=== PATIENT | male | born 1965 | race Caucasian/White ===

== ENCOUNTER 2019-02-14 12:07 | Emergency (ER) | payer OTHER ==
[~2019-02-14] VITALS: Ht 177.8 cm; Wt 102.1 kg
[~2019-02-14 12:07] MED LIST: ALBU90I INH; BACITO TP; HYDACE10B PO; PRED20 PO
[2019-02-14] MEDS ORDERED: Prozac40 MG PO (13:11)
[2019-02-14] MEDS ORDERED: Mobic15 MG PO (13:11)
[2019-02-14] MEDS ORDERED: Ventolin/Prove6.7 GM INH (13:11)
[2019-02-14] MEDS ORDERED: Flovent 220 Ora12 GM INH (13:11)
[2019-02-14] MEDS ORDERED: Bactrim Ds Tab1 EACH PO (13:28)
[2019-02-14] MEDS ORDERED: MUPIROCIN1 GM TOP (13:28)
[2019-02-14] MEDS ORDERED: CEPH500 PO (13:28)
== END 2019-02-14 13:51 | disposition home or self-care (01) ==
LOC: ER 12:07
DX: L02.811 Cutaneous abscess of head [any part, except face] (principal); L02.414 Cutaneous abscess of left upper limb; L02.413 Cutaneous abscess of right upper limb; F17.200 Nicotine dependence, unspecified, uncomplicated; Z79.899 Other long term (current) drug therapy
CPT/HCPCS: 99282

== ENCOUNTER 2020-08-17 10:37 | Emergency (ER) | payer OTHER ==
[~2020-08-17] VITALS: Ht 170.2 cm; Wt 104.3 kg
[~2020-08-17 10:37] MED LIST changes: +Bactrim Ds Tab1 EACH PO; +CEPH500 PO; +Flovent 220 Ora12 GM INH; +MUPIROCIN1 GM TOP; +Mobic15 MG PO; +Prozac40 MG PO; +Ventolin/Prove6.7 GM INH
[2020-08-17 11:09] LABS: BASOPHILS ABSOLUTE AUTO 0.04 K/mm3 (0.00-0.23); BASOPHILS PERCENT AUTO 0 % (0-2); EOSINOPHILS ABSOLUTE AUTO 0.39 K/mm3 (0.00-0.68); EOSINOPHILS PERCENT AUTO 4 % (0-6); Hematocrit 39.3 % (37.0-53.0); Hemoglobin 12.8 g/dL (13.5-17.5); IMMATURE GRAN ABSOLUTE AUTO 0.03 K/mm3 (0.00-0.10); IMMATURE GRAN PERCENT AUTO 0 % (0-1); LYMPHOCYTES PERCENT AUTO 25 % (21-46); MONOCYTES ABSOLUTE AUTO 0.97 K/mm3 (0.16-1.47); MONOCYTES PERCENT AUTO 10 % (4-13); Mean Corpuscular HGB 26.8 pg (26.0-34.0); Mean Corpuscular HGB Conc 32.6 g/dL (31.5-36.5); Mean Corpuscular Volume 82 fL (80-100); Mean Platelet Volume 8.8 fL (9.1-12.4); NEUTROPHILS ABSOLUTE AUTO 5.63 K/mm3 (1.96-9.15); NEUTROPHILS PERCENT AUTO 60 % (41-73); Platelet Count 400 K/mm3 (150-400); RDW Coefficient Variation 13.2 % (11.7-14.2); RDW Standard Deviation 39.9 fL (35.1-46.3); Red Blood Cell Count 4.77 M/mm3 (4.30-5.90); White Blood Cell Count 9.36 K/mm3 (4.00-11.30)
[2020-08-17 11:22] LABS: Alanine Aminotransfer (ALT/SGP 27 U/L (12-78); Albumin/Globulin Ratio 0.6 (0.8-1.8); Alk Phos 136 U/L (50-136); Anion Gap 6 mmol/L (6-16); Aspartate Aminotrans (AST/SGOT 21 U/L (12-37); Bilirubin, Total 0.6 mg/dL (0.1-1.0); Blood Urea Nitrogen 20 mg/dL (8-24); Bun/Creatinine Ratio 22.4 (12.0-20.0); CO2, Blood 27 mmol/L (21-32); Calcium, Blood 8.4 mg/dL (8.5-10.1); Chloride, Blood 101 mmol/L (98-108); Creatinine, Blood 0.89 mg/dL (0.60-1.20); Globulin, Blood 5.2 g/dL (2.2-4.0); Glomerular Filtration Rate >60 (60-); Glucose, Blood 143 mg/dL (70-99); Potassium, Blood 3.8 mmol/L (3.5-5.5); Sodium, Blood 134 mmol/L (136-145); Total Protein, Blood 8.2 g/dL (6.4-8.2)
[2020-08-17] MEDS ORDERED: GABA100 PO (11:33)
[2020-08-17] MEDS ORDERED: ALBU90OI6 INH (11:33)
[2020-08-17] MEDS ORDERED: SYMBICORT 160-4.6 GM (11:34)
[2020-08-17] MEDS ORDERED: Bactrim Ds Tab1 EACH PO (12:32)
[2020-08-17] MEDS ORDERED: CEPH500 PO (12:32)
== END 2020-08-17 12:50 | disposition home or self-care (01) ==
LOC: ER 10:37
PROVIDERS: Emergency Medicine
DX: L03.115 Cellulitis of right lower limb (principal); Z23 Encounter for immunization; Z87.891 Personal history of nicotine dependence; Z79.899 Other long term (current) drug therapy
CPT/HCPCS: 36415; 73590; 80053; 83605; 83880; 85025; 86140; 87040; 90471; 90714; 93005; 93010; 93971; 94640; 96365; 99284-25; A9270; J0690

== ENCOUNTER 2020-09-21 12:36 | Emergency (ER) | payer OTHER ==
[~2020-09-21] VITALS: Ht 170.2 cm; Wt 106.6 kg
[~2020-09-21 12:36] MED LIST changes: +ALBU90OI6 INH; +GABA100 PO; +SYMBICORT 160-4.6 GM
[2020-09-21] MEDS ORDERED: Cleocin HCl300 MG PO (14:09)
== END 2020-09-21 14:30 | disposition home or self-care (01) ==
LOC: ER 12:36
DX: L03.115 Cellulitis of right lower limb (principal); Z79.899 Other long term (current) drug therapy; Z87.891 Personal history of nicotine dependence
CPT/HCPCS: 99282

== ENCOUNTER 2020-11-09 10:18 | Emergency (ER) | payer OTHER ==
[~2020-11-09] VITALS: Ht 170.2 cm; Wt 106.6 kg
[~2020-11-09 10:18] MED LIST changes: +Cleocin HCl300 MG PO
[2020-11-09 11:27] LABS: BASOPHILS ABSOLUTE AUTO 0.04 K/mm3 (0.00-0.23); BASOPHILS PERCENT AUTO 1 % (0-2); EOSINOPHILS ABSOLUTE AUTO 0.49 K/mm3 (0.00-0.68); EOSINOPHILS PERCENT AUTO 7 % (0-6); Hematocrit 42.9 % (37.0-53.0); Hemoglobin 13.5 g/dL (13.5-17.5); IMMATURE GRAN ABSOLUTE AUTO 0.03 K/mm3 (0.00-0.10); IMMATURE GRAN PERCENT AUTO 0 % (0-1); LYMPHOCYTES ABSOLUTE AUTO 1.88 K/mm3 (0.84-5.20); LYMPHOCYTES PERCENT AUTO 25 % (21-46); MONOCYTES ABSOLUTE AUTO 0.69 K/mm3 (0.16-1.47); MONOCYTES PERCENT AUTO 9 % (4-13); Mean Corpuscular HGB 26.4 pg (26.0-34.0); Mean Corpuscular HGB Conc 31.5 g/dL (31.5-36.5); Mean Corpuscular Volume 84 fL (80-100); Mean Platelet Volume 8.8 fL (9.1-12.4); NEUTROPHILS ABSOLUTE AUTO 4.31 K/mm3 (1.96-9.15); NEUTROPHILS PERCENT AUTO 58 % (41-73); Platelet Count 303 K/mm3 (150-400); RDW Coefficient Variation 14.3 % (11.7-14.2); RDW Standard Deviation 43.5 fL (35.1-46.3); Red Blood Cell Count 5.12 M/mm3 (4.30-5.90); White Blood Cell Count 7.44 K/mm3 (4.00-11.30)
[2020-11-09 11:48] LABS: Alanine Aminotransfer (ALT/SGP 34 U/L (12-78); Albumin, Blood 3.3 g/dL (3.4-5.0); Albumin/Globulin Ratio 0.7 (0.8-1.8); Alk Phos 126 U/L (50-136); Anion Gap 4 mmol/L (6-16); Aspartate Aminotrans (AST/SGOT 24 U/L (12-37); Bilirubin, Total 0.3 mg/dL (0.1-1.0); Blood Urea Nitrogen 15 mg/dL (8-24); Bun/Creatinine Ratio 16.7 (12.0-20.0); CO2, Blood 29 mmol/L (21-32); Calcium, Blood 8.9 mg/dL (8.5-10.1); Chloride, Blood 103 mmol/L (98-108); Globulin, Blood 4.6 g/dL (2.2-4.0); Glomerular Filtration Rate >60 (60-); Glucose, Blood 140 mg/dL (70-99); Sodium, Blood 136 mmol/L (136-145); Total Protein, Blood 7.9 g/dL (6.4-8.2)
[2020-11-09] MEDS ORDERED: PRED20 PO (13:33)
== END 2020-11-09 14:14 | disposition home or self-care (01) ==
LOC: ER 10:18
PROVIDERS: Physician Assistant
DX: J44.9 Chronic obstructive pulmonary disease, unspecified (principal); Z87.891 Personal history of nicotine dependence; Z20.822 Contact with and (suspected) exposure to COVID-19
CPT/HCPCS: 36415; 71045; 80053; 85025; 93005; 93010; 94640; 94644; 96374; 99285-25; J2930

== ENCOUNTER 2021-03-16 08:49 | Emergency (ER) | payer OTHER ==
[~2021-03-16] VITALS: Ht 170.2 cm; Wt 106.6 kg
== END 2021-03-16 10:15 | disposition home or self-care (01) ==
LOC: ER 08:49
DX: S01.01XA Laceration without foreign body of scalp, initial encounter (principal); J44.9 Chronic obstructive pulmonary disease, unspecified; Z79.899 Other long term (current) drug therapy; Z87.891 Personal history of nicotine dependence; W19.XXXA Unspecified fall, initial encounter
CPT/HCPCS: 12042; 70450; 99283-25

== ENCOUNTER 2022-07-03 20:30 | Inpatient (IN) | payer OTHER ==
[~2022-07-03] VITALS: Ht 165.1 cm; Wt 114.7 kg
[2022-07-03 21:05] LABS: BASOPHILS ABSOLUTE AUTO 0.03 K/mm3 (0.00-0.23); BASOPHILS PERCENT AUTO 0 % (0-2); EOSINOPHILS ABSOLUTE AUTO 0.56 K/mm3 (0.00-0.68); EOSINOPHILS PERCENT AUTO 5 % (0-6); Hemoglobin 13.6 g/dL (13.5-17.5); IMMATURE GRAN ABSOLUTE AUTO 0.08 K/mm3 (0.00-0.10); IMMATURE GRAN PERCENT AUTO 1 % (0-1); LYMPHOCYTES ABSOLUTE AUTO 2.39 K/mm3 (0.84-5.20); LYMPHOCYTES PERCENT AUTO 23 % (21-46); MONOCYTES ABSOLUTE AUTO 1.25 K/mm3 (0.16-1.47); MONOCYTES PERCENT AUTO 12 % (4-13); Mean Corpuscular HGB 26.7 pg (26.0-34.0); Mean Corpuscular HGB Conc 32.4 g/dL (31.5-36.5); Mean Corpuscular Volume 82 fL (80-100); Mean Platelet Volume 8.6 fL (9.1-12.4); NEUTROPHILS ABSOLUTE AUTO 6.22 K/mm3 (1.96-9.15); NEUTROPHILS PERCENT AUTO 59 % (41-73); Platelet Count 445 K/mm3 (150-400); RDW Coefficient Variation 14.4 % (11.7-14.2); RDW Standard Deviation 43.6 fL (35.1-46.3); White Blood Cell Count 10.53 K/mm3 (4.00-11.30)
[2022-07-03 21:23] LABS: Albumin, Blood 2.5 g/dL (3.4-5.0); Albumin/Globulin Ratio 0.5 (0.8-1.8); Bilirubin, Total 0.5 mg/dL (0.1-1.0); Bun/Creatinine Ratio 18.6 (12.0-20.0); Calcium, Blood 8.9 mg/dL (8.5-10.1); Creatinine, Blood 0.7 mg/dL (0.60-1.20); Potassium, Blood 3.6 mmol/L (3.5-5.5); Total Protein, Blood 7.5 g/dL (6.4-8.2)
[2022-07-03 23:13] LABS: Source, Urine Clean Catch
[2022-07-03 23:15] LABS: Bilirubin, Urine Neg (Neg); Blood, Urine Neg (Neg); Glucose Qualitative, Urine Neg (Neg); Ketones, Urine Neg (Neg); Leukocyte Esterase, Urine Neg (Neg); Nitrite, Urine Neg (Neg); Protein, Urine 1+ (Neg); Specific Gravity, Urine 1.005 (1.003-1.022); Urobilinogen, Urine 2+ (Normal)
[2022-07-03 23:27] LABS: Appearance, Urine Clear (Clear); Color, Urine Yellow (P-Yellow)
[2022-07-04 05:02] LABS: BASOPHILS ABSOLUTE AUTO 0.06 K/mm3 (0.00-0.23); BASOPHILS PERCENT AUTO 1 % (0-2); EOSINOPHILS ABSOLUTE AUTO 0.39 K/mm3 (0.00-0.68); EOSINOPHILS PERCENT AUTO 4 % (0-6); Hematocrit 38.7 % (37.0-53.0); Hemoglobin 12.5 g/dL (13.5-17.5); IMMATURE GRAN PERCENT AUTO 1 % (0-1); LYMPHOCYTES ABSOLUTE AUTO 2.22 K/mm3 (0.84-5.20); LYMPHOCYTES PERCENT AUTO 20 % (21-46); MONOCYTES PERCENT AUTO 13 % (4-13); Mean Corpuscular HGB 26.7 pg (26.0-34.0); Mean Corpuscular HGB Conc 32.3 g/dL (31.5-36.5); Mean Corpuscular Volume 83 fL (80-100); Mean Platelet Volume 8.8 fL (9.1-12.4); NEUTROPHILS ABSOLUTE AUTO 6.69 K/mm3 (1.96-9.15); NEUTROPHILS PERCENT AUTO 62 % (41-73); Platelet Count 416 K/mm3 (150-400); RDW Coefficient Variation 14.7 % (11.7-14.2); RDW Standard Deviation 44.5 fL (35.1-46.3); Red Blood Cell Count 4.68 M/mm3 (4.30-5.90); White Blood Cell Count 10.86 K/mm3 (4.00-11.30)
--- NOTE | 2022-07-04 05:50 | NUR ---
SHIFT SUMMARY NOC ADMIT FROM ED WITH PERIANAL ABCESS IN LEFT GLUTEAL FOLD. ABCESS HAS FOUL SMELLING PURULENT DRAINAGE. PT A/O X 4. PT HAS I&D CONSULT WITH DR MONTERO SCHEDULED FOR TODAY FOR POSSIBLE SURGERY ON ABCESS. PT IS NPO AWAITING CONSULT. PT HAS NS INFUSING @ 125 MLS/HR. PT IS Q6H CBG CHECKS DUE TO NPO STATUS. PICTURES OF PT ABCESS ARE IN CHART. PT IS ON CIPRO AND FLAGYL FOR ABCESS INFECTION. PT IS CURRENTLY RESTING WITH BED IN LOWEST POSITION, AND CALL LIGHT WITHIN REACH.
[2022-07-04 06:14] LABS: Bun/Creatinine Ratio 16.8 (12.0-20.0); Calcium, Blood 8.3 mg/dL (8.5-10.1); Creatinine, Blood 0.77 mg/dL (0.60-1.20); Potassium, Blood 3.6 mmol/L (3.5-5.5)
--- NOTE | 2022-07-04 11:02 | NUR ---
DR. QUINTANILLA GENERAL SURGEON CAME BY AND SPOKE c PATIENT AT AROUND 1015 REGARDING THE PROCEDURE. PER PATIENT HE WOULD LIKE TO THINK ABOUT IT. THIS RN CHECKED WITH PATIENT REGARDING THE PROCEDURE. PER PATIENT AFTER HAVING A DISCUSSION WITH DR. QUINTANILLA ABOUT THE RISK AND BENIFITS OF THE PROCEDURE "I DECIDED THAT I AM NOT GOING TO HAVE IT DONE." THIS RN CALLED DR. QUINTANILLA'S NUMBER AND SPOKE c RICH AROUND 1103 REGARDING PATIENT DECISION. PER RICH SHE WILL LET DR. QUINTANILLA KNOW.
--- NOTE | 2022-07-04 11:31 | NUR ---
CALLED DR. PARSONS TO REPORT REGARDING PATIENT DECLINED THE PROCEDURE PLAN THIS PM AND DIET CHANGED. RECEIVED ORDER TO START REGULAR DIET.
--- NOTE | 2022-07-04 15:58 | NUR ---
SHIFT SUMMARY: PATIENT A&OX4. CALM, PLEASANT, AND COOPERATIVE c CARE. USES CALL LIGHT APPROPRIATELY AND ABLE TO MAKE NEEDS KNOWN. NOTED PURULENT DRAINAIGE AND FOUL SMELLING TO PERIANAL ABCESS. PATIENT DECLINED SURGERY TODAY. PER PATIENT HE MIGHT RECONSIDER THE SURGERY OPTION BUT HE NEEDS TIME TO TALK TO HIS THIS EVENING. PATIENT RECEIVED SCHEDULED MEDS PER EMAR. PATIENT DENIES CP/PRESSURE, N/V, SOB. NO FEVER. PATIENT ON RA c SPO2 RANGES 95-96% T/O SHIFT. LUNGS COARSE AND WHEEZES T/O TO AUSCULTATION. RECEIVED BREATHING TX ADMINISTERED BY RT T/O SHIFT. VITAL SIGNS REVIEWED. PATIENT IS CONTINENT, USES URINAL IN BED INDEPENDENTLY. PLAN TO HAVE PATIENT NPO AT [facility] FOR POSSIBLE SURGERY TOMORROW 07/05/22. BED ALARM ON FOR SAFETY. CALL LIGHT IN REACH.
[2022-07-05 05:27] LABS: Hematocrit 40.1 % (37.0-53.0); Hemoglobin 12.8 g/dL (13.5-17.5); Mean Corpuscular HGB 26.8 pg (26.0-34.0); Mean Corpuscular HGB Conc 31.9 g/dL (31.5-36.5); Mean Corpuscular Volume 84 fL (80-100); Mean Platelet Volume 8.8 fL (9.1-12.4); Platelet Count 441 K/mm3 (150-400); RDW Coefficient Variation 14.8 % (11.7-14.2); RDW Standard Deviation 45.3 fL (35.1-46.3); Red Blood Cell Count 4.78 M/mm3 (4.30-5.90); White Blood Cell Count 10.91 K/mm3 (4.00-11.30)
--- NOTE | 2022-07-05 06:16 | NUR ---
PT AOX4, PLEASANT, ANXIOUS ABOUT POSSIBILITY OF SURGERY BUT STATES NEAR END OF SHIFT THAT HE IS LIKELY GOING TO AGREE TO SURGERY. PERIANAL ABCESS HAS MODERATE SANGUINEOUS DRAINAGE, GAUZE AND CHUX CHANGED NEEDED.
[2022-07-05 06:28] LABS: Bun/Creatinine Ratio 19.1 (12.0-20.0); Calcium, Blood 8.7 mg/dL (8.5-10.1); Creatinine, Blood 0.73 mg/dL (0.60-1.20); Potassium, Blood 4.2 mmol/L (3.5-5.5)
--- NOTE | 2022-07-05 08:00 | NUR ---
pt will be going to surg this am for i&d of perirectal abcess, wound has moderate drainage, with gauze dressing in place, area around is very red, pt a/ox3, very anxious about surg, is dyaphoretic, lungs are course wheezy, on r/a, resp even and unlabored, no cough noted, hrr, no edema noted, ppp+1, cap refill <3sec, vs stable, afebrile, iv iv sites are clear and patent, btx4, abd flat soft nontender, voids without diff, skin c/w/d, maew, lola, call light in reach.
--- NOTE | 2022-07-05 09:28 | NUR ---
pt left via jude for surg.
--- NOTE | 2022-07-05 11:34 | NUR ---
returned to room in good condition, vs stable, afebrile, call light in reach, family in room.
[2022-07-06 05:13] LABS: BASOPHILS ABSOLUTE AUTO 0.04 K/mm3 (0.00-0.23); BASOPHILS PERCENT AUTO 0 % (0-2); EOSINOPHILS ABSOLUTE AUTO 0.14 K/mm3 (0.00-0.68); EOSINOPHILS PERCENT AUTO 1 % (0-6); Hematocrit 37.9 % (37.0-53.0); Hemoglobin 12.1 g/dL (13.5-17.5); IMMATURE GRAN ABSOLUTE AUTO 0.29 K/mm3 (0.00-0.10); IMMATURE GRAN PERCENT AUTO 2 % (0-1); LYMPHOCYTES ABSOLUTE AUTO 2.75 K/mm3 (0.84-5.20); LYMPHOCYTES PERCENT AUTO 21 % (21-46); MONOCYTES ABSOLUTE AUTO 1.03 K/mm3 (0.16-1.47); MONOCYTES PERCENT AUTO 8 % (4-13); Mean Corpuscular HGB 26.8 pg (26.0-34.0); Mean Corpuscular HGB Conc 31.9 g/dL (31.5-36.5); Mean Corpuscular Volume 84 fL (80-100); Mean Platelet Volume 8.4 fL (9.1-12.4); NEUTROPHILS ABSOLUTE AUTO 9.05 K/mm3 (1.96-9.15); NEUTROPHILS PERCENT AUTO 68 % (41-73); Platelet Count 460 K/mm3 (150-400); RDW Coefficient Variation 14.6 % (11.7-14.2); RDW Standard Deviation 44.9 fL (35.1-46.3); Red Blood Cell Count 4.52 M/mm3 (4.30-5.90)
[2022-07-06 05:34] LABS: Bun/Creatinine Ratio 27.3 (12.0-20.0); Calcium, Blood 8.2 mg/dL (8.5-10.1); Creatinine, Blood 0.77 mg/dL (0.60-1.20)
--- NOTE | 2022-07-06 16:41 | NUR ---
SHIFT SUMMARY PATIENT IS ALERT AND ORIENTED. PATIENT HAS HAD NO ACUTE EVENTS THIS SHIFT. VITAL SIGNS REVIEWED. PATIENT HAS HAD NO COMPLAINTS OF PAIN, NAUSEA, SOB OR VOMITTING THIS SHIFT. PATIENTS SURGICAL SITE IS CLEAN AND DRESSING IS DRY. PATIENT HAS BEEN RESTING WITH A BIT OF FAMILY VISITING. ABX INFUSED ORDERED. BED IN LOCKED AND LOWEST POSITION. CALL LIGHT IN PLACE. WILL MONITOR UNTIL SHIFT CHANGE.
[2022-07-07 00:22] LABS: BASOPHILS ABSOLUTE AUTO 0.07 K/mm3 (0.00-0.23); BASOPHILS PERCENT AUTO 1 % (0-2); EOSINOPHILS ABSOLUTE AUTO 0.34 K/mm3 (0.00-0.68); EOSINOPHILS PERCENT AUTO 3 % (0-6); Hemoglobin 11.7 g/dL (13.5-17.5); IMMATURE GRAN ABSOLUTE AUTO 0.19 K/mm3 (0.00-0.10); IMMATURE GRAN PERCENT AUTO 2 % (0-1); LYMPHOCYTES ABSOLUTE AUTO 2.63 K/mm3 (0.84-5.20); LYMPHOCYTES PERCENT AUTO 26 % (21-46); MONOCYTES ABSOLUTE AUTO 0.84 K/mm3 (0.16-1.47); MONOCYTES PERCENT AUTO 8 % (4-13); Mean Corpuscular HGB 26.8 pg (26.0-34.0); Mean Corpuscular HGB Conc 31.6 g/dL (31.5-36.5); Mean Corpuscular Volume 85 fL (80-100); Mean Platelet Volume 8.3 fL (9.1-12.4); NEUTROPHILS ABSOLUTE AUTO 6.06 K/mm3 (1.96-9.15); NEUTROPHILS PERCENT AUTO 60 % (41-73); Platelet Count 412 K/mm3 (150-400); RDW Coefficient Variation 14.8 % (11.7-14.2); RDW Standard Deviation 46.1 fL (35.1-46.3); Red Blood Cell Count 4.36 M/mm3 (4.30-5.90); White Blood Cell Count 10.13 K/mm3 (4.00-11.30)
[2022-07-07 00:39] LABS: Anion Gap 2 mmol/L (6-16); Blood Urea Nitrogen 25 mg/dL (8-24); Bun/Creatinine Ratio 33.5 (12.0-20.0); CO2, Blood 30 mmol/L (21-32); Calcium, Blood 7.7 mg/dL (8.5-10.1); Chloride, Blood 106 mmol/L (98-108); Creatinine, Blood 0.75 mg/dL (0.60-1.20); Glomerular Filtration Rate 105 (60-); Glucose, Blood 113 mg/dL (70-99); Potassium, Blood 4.2 mmol/L (3.5-5.5); Sodium, Blood 138 mmol/L (136-145); Vancomycin, Trough 14.5 ug/mL (5.0-10.0)
--- NOTE | 2022-07-07 10:56 | NUR ---
NURSE NOTE PATIENT WOUND CARE DONE AND BOWEL MOVEMENT CLEANED UP. WOUND CARE CONSULTATION ORDER PUT IN.
--- NOTE | 2022-07-07 16:16 | NUR ---
SHIFT SUMMARY PATIENT IS ALERT AND ORIENTED. PATIENT HAS HAD NO ACUTE EVENTS THIS SHIFT. VITAL SIGNS REVIEWED. PATIENT WAS CLEANED UP AND WOUND CARE WAS DONE. WOUND CARE CONSULT WAS PUT IN AND PERSONALLY TALKED TO WOUND CARE NURSE AND WILL SEE PATIENT IN THE MORNING. IV ABX INFUSED. PATIENT HAS NOT COMPLAINED OF PAIN, NAUSEA, SOB OR VOMITTING THIS SHIFT. BED IN LOCKED AND LOWEST POSITION. CALL LIGHT IN PLACE. WILL MONITOR UNTIL SHIFT CHANGE.
--- NOTE | 2022-07-08 04:20 | NUR ---
SHIFT MOSTLY UNREMARKABLE. PT HAS SLEPT THROUGH MOST OF SHIFT. MICONAZOLE LIBERALLY APPLIED TO BHAVNA ANAL WOUND AT 2100 MED PASS. ABX ADMINISTERED AT 0000 AND 0100 WITHOUT DIFFICULTY. PT HAS NOT COMPLAINED OF PAIN AND HAS BEEN PLEASANT THROUGHOUT SHIFT. AOX4. CALL LIGHT LEFT WITHIN REACH.
[2022-07-08 05:32] LABS: BASOPHILS ABSOLUTE AUTO 0.04 K/mm3 (0.00-0.23); BASOPHILS PERCENT AUTO 0 % (0-2); EOSINOPHILS ABSOLUTE AUTO 0.33 K/mm3 (0.00-0.68); EOSINOPHILS PERCENT AUTO 3 % (0-6); Hematocrit 40.6 % (37.0-53.0); Hemoglobin 13.3 g/dL (13.5-17.5); IMMATURE GRAN ABSOLUTE AUTO 0.21 K/mm3 (0.00-0.10); IMMATURE GRAN PERCENT AUTO 2 % (0-1); LYMPHOCYTES ABSOLUTE AUTO 2.55 K/mm3 (0.84-5.20); LYMPHOCYTES PERCENT AUTO 23 % (21-46); MONOCYTES ABSOLUTE AUTO 0.86 K/mm3 (0.16-1.47); MONOCYTES PERCENT AUTO 8 % (4-13); Mean Corpuscular HGB 27.3 pg (26.0-34.0); Mean Corpuscular HGB Conc 32.8 g/dL (31.5-36.5); Mean Corpuscular Volume 83 fL (80-100); Mean Platelet Volume 8.2 fL (9.1-12.4); NEUTROPHILS ABSOLUTE AUTO 7.36 K/mm3 (1.96-9.15); NEUTROPHILS PERCENT AUTO 65 % (41-73); Platelet Count 363 K/mm3 (150-400); RDW Coefficient Variation 14.6 % (11.7-14.2); RDW Standard Deviation 44.3 fL (35.1-46.3); Red Blood Cell Count 4.87 M/mm3 (4.30-5.90); White Blood Cell Count 11.35 K/mm3 (4.00-11.30)
--- NOTE | 2022-07-08 10:09 | NUR ---
07/08/22 1009 Shira Quintana VERIFICATIONS: EDIT CHART.
--- NOTE | 2022-07-08 16:14 | NUR ---
SHIFT SUMMARY: NO ACUTE EVENTS. DENIED PAIN UNLESS NURSING IS DOING WOUND/PERICARE. PRESTON DRAINS ARE INTACT. USING URINAL INDEPENDENTLY. INDEPENDENT IN ROOM. APPETITE IS OK, DOESN'T EAT BREAKFAST. LUNG SOUNDS WITH EXP WHEEZES, IS RECEIVING NEB TREATMENTS. SOME ABX TRANSITIONED TO ORAL.
--- NOTE | 2022-07-09 03:56 | NUR ---
SHIFT UNREMARKABLE. PT HAS SLEPT THROUGH MOST OF SHIFT. ABX ADMINISTERED WITHOUT DIFFICULTY. PT HAS CONTINUED TO DENY ANY PAIN OR DISCOMFORT. ANXIOUS TO BE DISCHARGED. PLEASANT AND COOPERATIVE WITH CARE. CONTINENT AND USES URINAL INDEPENDENTLY. WOUND CHECKED EARLY IN SHIFT, CLEAN AND DRY. WILL CHANGE DRESSING AND RE-CLEAN BEFORE SHIFT CHANGE. AOX4. STEADY ON FEET. BED LOCKED IN LOWEST POSITION. CALL LIGHT LEFT WITHIN REACH.
[2022-07-09 05:25] LABS: BASOPHILS ABSOLUTE AUTO 0.06 K/mm3 (0.00-0.23); BASOPHILS PERCENT AUTO 1 % (0-2); EOSINOPHILS ABSOLUTE AUTO 0.31 K/mm3 (0.00-0.68); EOSINOPHILS PERCENT AUTO 3 % (0-6); Hematocrit 43.4 % (37.0-53.0); Hemoglobin 13.9 g/dL (13.5-17.5); IMMATURE GRAN ABSOLUTE AUTO 0.19 K/mm3 (0.00-0.10); IMMATURE GRAN PERCENT AUTO 2 % (0-1); LYMPHOCYTES ABSOLUTE AUTO 2.91 K/mm3 (0.84-5.20); LYMPHOCYTES PERCENT AUTO 24 % (21-46); MONOCYTES ABSOLUTE AUTO 1.15 K/mm3 (0.16-1.47); MONOCYTES PERCENT AUTO 10 % (4-13); Mean Corpuscular HGB 26.9 pg (26.0-34.0); Mean Corpuscular Volume 84 fL (80-100); Mean Platelet Volume 8.3 fL (9.1-12.4); NEUTROPHILS ABSOLUTE AUTO 7.32 K/mm3 (1.96-9.15); NEUTROPHILS PERCENT AUTO 61 % (41-73); Platelet Count 367 K/mm3 (150-400); RDW Coefficient Variation 14.5 % (11.7-14.2); RDW Standard Deviation 44.2 fL (35.1-46.3); Red Blood Cell Count 5.16 M/mm3 (4.30-5.90); White Blood Cell Count 11.94 K/mm3 (4.00-11.30)
[2022-07-09 05:57] LABS: Bun/Creatinine Ratio 18.7 (12.0-20.0); Calcium, Blood 8.9 mg/dL (8.5-10.1); Creatinine, Blood 0.96 mg/dL (0.60-1.20); Potassium, Blood 4.5 mmol/L (3.5-5.5)
--- NOTE | 2022-07-09 17:03 | NUR ---
SHIFT SUMMARY NO ACUTE CHANGES THIS SHIFT. THE PT RECEIVED A SHOWER THIS SHIFT, CLEANING THE AREAS WHERE THE DRAINS ARE LOCATED WELL. HIS DRESSINGS ARE STILL C/D/I, REPLACED ONCE THIS SHIFT AND CHECKED THROUGHOUT. HIS AND KIDS HAVE VISITED TODAY. POSSIBLE DISCHARGE TOMORROW, HIS WILL NEED TO BE TAUGHT ABOUT HOW TO TAKE CARE OF HIS WOUNDS. CALL LIGHT WITHIN REACH, BED IN THE LOWEST POSITION. WILL REPORT TO ONCOMING NURSE.
--- NOTE | 2022-07-10 04:41 | NUR ---
SHIFT SUMMARY; NO ACUTE CHANGES OVERNIGHT. THE PT IS AXO X4 AND USES THE BEDSIDE URINAL INDEPENDENTLY T/O THE NIGHT. THE PT WAS UNAGREEABLE TO LETTING ME CHANGE HIS ABD PADS AND POWDERING HIS ABCESSES AT THE BEGINNING OF THE SHIFT BECAUSE THE PT STATED THAT HE HAD JUST HAD IT DONE. HOWEVER, THE PT HAS SINCE LET ME CHANGE HIS ABD PADS AND APPLY MICONAZOLE POWDER. THE PT DENIES ANY PAIN, CHEST PAIN/PRESSURE OR SOB. THE PT DOES HAS SOB WITH EXERTION WELL THE PT HAS AN EXPIRATORY WHEEZE, HOWEVER THE PT STATES THAT THIS IS HIS BASELINE. CURRENTLY THE PT IS SLEEPING IN BED WITH THE BED IN THE LOWEST POSITION AND THE CALL LIGHT AT BEDSIDE.
[2022-07-10 05:35] LABS: BASOPHILS ABSOLUTE AUTO 0.06 K/mm3 (0.00-0.23); BASOPHILS PERCENT AUTO 1 % (0-2); EOSINOPHILS ABSOLUTE AUTO 0.23 K/mm3 (0.00-0.68); EOSINOPHILS PERCENT AUTO 3 % (0-6); Hematocrit 41.3 % (37.0-53.0); Hemoglobin 13.9 g/dL (13.5-17.5); IMMATURE GRAN ABSOLUTE AUTO 0.13 K/mm3 (0.00-0.10); IMMATURE GRAN PERCENT AUTO 1 % (0-1); LYMPHOCYTES ABSOLUTE AUTO 2.38 K/mm3 (0.84-5.20); LYMPHOCYTES PERCENT AUTO 26 % (21-46); MONOCYTES ABSOLUTE AUTO 0.92 K/mm3 (0.16-1.47); MONOCYTES PERCENT AUTO 10 % (4-13); Mean Corpuscular HGB 27.6 pg (26.0-34.0); Mean Corpuscular HGB Conc 33.7 g/dL (31.5-36.5); Mean Corpuscular Volume 82 fL (80-100); Mean Platelet Volume 8.5 fL (9.1-12.4); NEUTROPHILS ABSOLUTE AUTO 5.51 K/mm3 (1.96-9.15); NEUTROPHILS PERCENT AUTO 60 % (41-73); Platelet Count 368 K/mm3 (150-400); RDW Coefficient Variation 14.6 % (11.7-14.2); RDW Standard Deviation 42.9 fL (35.1-46.3); Red Blood Cell Count 5.04 M/mm3 (4.30-5.90); White Blood Cell Count 9.23 K/mm3 (4.00-11.30)
[2022-07-10] MEDS ORDERED: METR500 PO (11:21)
[2022-07-10] MEDS ORDERED: MICONAZOLE TOP (11:25)
[2022-07-10] MEDS ORDERED: VISBIOME 112.51 EACH PO (11:26)
[2022-07-10] MEDS ORDERED: BACTRIM DS TAB1 EAC1 PO (11:26)
[2022-07-10] MEDS ORDERED: MIRALAX17 GM PO (11:26)
--- NOTE | 2022-07-10 13:31 | NUR ---
DISCHARGE SUMMARY PATIENT IS ALERT AND ORIENTED. PATIENT HAS HAD NO ACUTE EVENTS THIS SHIFT. WOUND CARE DONE THIS MORNING. VITAL SIGNS REVIEWED. PATIENT AND FAMILY WERE READ DISCHARGE INFORMATION, MEDICATIONS FAXED TO PATIENTS PHARMACY. PATIENT WAS WHEELED OUT BY THIS RN TO PATIENTS [facility].
== END 2022-07-10 13:16 | disposition home health service (06) | DRG 348 ==
LOC: ER 20:30 → ERHOLD 07-04 00:31 → MEDS 07-04 00:31
PROVIDERS: Emergency Medicine; Family Medicine; Internal Medicine; Surgery; ADMIT Student in an Organized Health Care Education/Training Program
PROC: 0D9Q0ZZ Drainage of Anus, Open Approach (ICD-10-PCS; principal; 2022-07-05 10:00)
DX: K61.0 Anal abscess (principal); E87.1 Hypo-osmolality and hyponatremia; L03.116 Cellulitis of left lower limb; L03.317 Cellulitis of buttock; D64.9 Anemia, unspecified; F41.9 Anxiety disorder, unspecified; J44.9 Chronic obstructive pulmonary disease, unspecified; F32.A Depression, unspecified; B95.62 Methicillin resistant Staphylococcus aureus infection as the cause of diseases classified elsewhere; G89.29 Other chronic pain; B96.20 Unspecified Escherichia coli [E. coli] as the cause of diseases classified elsewhere; B96.6 Bacteroides fragilis [B. fragilis] as the cause of diseases classified elsewhere; B96.7 Clostridium perfringens [C. perfringens] as the cause of diseases classified elsewhere; G40.909 Epilepsy, unspecified, not intractable, without status epilepticus; M25.561 Pain in right knee; Z79.51 Long term (current) use of inhaled steroids; Z79.899 Other long term (current) drug therapy; Z89.022 Acquired absence of left finger(s); Z98.890 Other specified postprocedural states; Z87.891 Personal history of nicotine dependence; Z28.21 Immunization not carried out because of patient refusal
CPT/HCPCS: 36415; 71045; 72193; 80048; 80053; 80202; 83605; 85025; 85027; 86850; 86900; 86901; 87040; 87070; 87075; 87076; 87077; 87185; 87186; 87205; 93005; 93010; 94640; 94664; 94760; 96365-59; 96367; 96375; 99285-25; A9270; J0696; J0744; J1100; J1650; J2370; J2405; J2543; J2704; J3010; J3370; J7030; J7050; Q9967

== ENCOUNTER 2022-07-21 00:56 | Day surgery (SDC) | payer OTHER ==
[~2022-07-21 00:56] MED LIST changes: +BACTRIM DS TAB1 EAC1 PO; +METR500 PO; +MICONAZOLE TOP; +MIRALAX17 GM PO; +VISBIOME 112.51 EACH PO
== END 2022-07-21 22:38 | disposition home or self-care (01) ==
LOC: WOUND 00:56
DX: T81.41XA Infection following a procedure, superficial incisional surgical site, initial encounter (principal); K61.2 Anorectal abscess; L03.315 Cellulitis of perineum; Y83.8 Other surgical procedures as the cause of abnormal reaction of the patient, or of later complication, without mention of misadventure at the time of the procedure
CPT/HCPCS: A9270; G0463

== ENCOUNTER 2022-07-31 02:47 | Day surgery (SDC) | payer OTHER | END 2022-07-31 23:20 | disposition home or self-care (01) | LOC: WOUND 02:47 | DX: S71.112A Laceration without foreign body, left thigh, initial encounter (principal); X58.XXXA Exposure to other specified factors, initial encounter; K61.2 Anorectal abscess; L03.315 Cellulitis of perineum; J44.9 Chronic obstructive pulmonary disease, unspecified | CPT/HCPCS: A9270; G0463 ==

== ENCOUNTER 2022-08-07 01:42 | Day surgery (SDC) | payer OTHER | END 2022-08-07 22:53 | disposition home or self-care (01) | LOC: WOUND 01:42 | DX: K61.2 Anorectal abscess (principal); L03.315 Cellulitis of perineum | CPT/HCPCS: G0463 ==

== ENCOUNTER 2022-08-13 05:44 | Day surgery (SDC) | payer OTHER | END 2022-08-13 23:02 | disposition home or self-care (01) | LOC: WOUND 05:44 | DX: K61.2 Anorectal abscess (principal); L03.315 Cellulitis of perineum | CPT/HCPCS: A9270 ==

== ENCOUNTER 2022-08-22 01:17 | Day surgery (SDC) | payer OTHER | END 2022-08-24 22:40 | disposition home or self-care (01) | LOC: WOUND 01:17 | DX: S71.102A Unspecified open wound, left thigh, initial encounter (principal); S71.101A Unspecified open wound, right thigh, initial encounter; L08.9 Local infection of the skin and subcutaneous tissue, unspecified; X58.XXXA Exposure to other specified factors, initial encounter; K61.2 Anorectal abscess; L03.315 Cellulitis of perineum; J44.9 Chronic obstructive pulmonary disease, unspecified | CPT/HCPCS: A9270 ==

== ENCOUNTER 2022-08-29 02:42 | Day surgery (SDC) | payer OTHER | END 2022-08-31 22:51 | disposition home or self-care (01) | LOC: WOUND 02:42 | DX: S71.112A Laceration without foreign body, left thigh, initial encounter (principal); L08.9 Local infection of the skin and subcutaneous tissue, unspecified; X58.XXXA Exposure to other specified factors, initial encounter; K61.2 Anorectal abscess; L03.315 Cellulitis of perineum; J44.9 Chronic obstructive pulmonary disease, unspecified | CPT/HCPCS: A9270; G0463 ==

== ENCOUNTER → 2022-09-12 | Day surgery (SDC) | payer OTHER | LOC: WOUND 03:23 | DX: L03.315 Cellulitis of perineum (principal); K61.2 Anorectal abscess; J44.9 Chronic obstructive pulmonary disease, unspecified; F10.10 Alcohol abuse, uncomplicated | CPT/HCPCS: G0463 ==

== ENCOUNTER 2022-10-20 00:33 | Day surgery (SDC) | payer OTHER | END 2022-10-20 22:58 | disposition home or self-care (01) | LOC: WOUND 00:33 | DX: K61.2 Anorectal abscess (principal); L03.315 Cellulitis of perineum | CPT/HCPCS: G0463 ==

== ENCOUNTER 2023-03-25 14:24 | Day surgery (SDC) | payer OTHER ==
[~2023-03-25] VITALS: Ht 165.1 cm; Wt 105.9 kg
[~2023-03-25 14:24] MED LIST changes: +ALBU90OI INH; +ANORO ELLIPTA1 EACH INH; +BUDESONIDE-FO10.2 G2 INH; +FLUO10 PO; +FLUOXETINE HCL20 M1 PO; +IPRAT-ALBUT 0.5-3 ML NEB; +MOBIC15 MG PO; -SYMBICORT 160-4.6 GM
[2023-03-25] MEDS ORDERED: SPIRIVA RESPIMAT4 G3 (15:39)
[2023-03-25] MEDS ORDERED: GABA100 PO (15:40)
--- NOTE | 2023-03-25 15:52 | NUR ---
03/25/23 1552 Felicitas Dudley T:[id number] P:[id number]
--- NOTE | 2023-03-25 16:32 | NUR ---
03/25/23 1632 Irma Gonsales TRYPAN BLUE INJECTED INTO EYE AT START OF CASE.
[2023-03-25 16:44] VITALS: BP 148/102
== END 2023-03-25 16:59 | disposition home or self-care (01) ==
LOC: ORSCSDS 14:24
PROVIDERS: Ophthalmology
PROC: 08RK3JZ Replacement of Left Lens with Synthetic Substitute, Percutaneous Approach (ICD-10-PCS; principal; 2023-03-25 16:00)
DX: H25.12 Age-related nuclear cataract, left eye (principal); J44.9 Chronic obstructive pulmonary disease, unspecified; F15.11 Other stimulant abuse, in remission; Z79.899 Other long term (current) drug therapy; Z87.891 Personal history of nicotine dependence
CPT/HCPCS: J2250; J3010; J3301; J7040; V2632

== ENCOUNTER 2024-08-15 17:17 | Inpatient (IN) | payer OTHER ==
[~2024-08-15] VITALS: Ht 167.6 cm; Wt 102.8 kg
[~2024-08-15 17:17] MED LIST changes: +AZIT500 PO; +SPIRIVA RESPIMAT4 G3; +SPIRIVA RESPIMAT4 G3 INH
[2024-08-15] MEDS ORDERED: MethylPREDNISolone Sod Succ 125 MG Vial IV ONE (17:30)
[2024-08-15] MEDS ORDERED: Ipratropium/Albuterol SulF 2.5-0.5MG/3 ML Amp INH ONE (17:30)
[2024-08-15 17:48] LABS: Bicarbonate Venous 29.4 mmol/L (24.0-30.0); pH Blood Venous 7.42 (7.34-7.37)
[2024-08-15 17:49] LABS: BASOPHILS ABSOLUTE AUTO 0.03 K/mm3 (0.00-0.23); BASOPHILS PERCENT AUTO 0 % (0-2); EOSINOPHILS ABSOLUTE AUTO 0.03 K/mm3 (0.00-0.68); EOSINOPHILS PERCENT AUTO 0 % (0-6); Hematocrit 40.5 % (37.0-53.0); Hemoglobin 13.2 g/dL (13.5-17.5); IMMATURE GRAN ABSOLUTE AUTO 0.11 K/mm3 (0.00-0.10); IMMATURE GRAN PERCENT AUTO 1 % (0-1); LYMPHOCYTES ABSOLUTE AUTO 1.32 K/mm3 (0.84-5.20); LYMPHOCYTES PERCENT AUTO 7 % (21-46); MONOCYTES PERCENT AUTO 9 % (4-13); Mean Corpuscular HGB 26.9 pg (26.0-34.0); Mean Corpuscular HGB Conc 32.6 g/dL (31.5-36.5); Mean Corpuscular Volume 83 fL (80-100); NEUTROPHILS ABSOLUTE AUTO 15.06 K/mm3 (1.96-9.15); NEUTROPHILS PERCENT AUTO 83 % (41-73); Platelet Count 297 K/mm3 (150-400); RDW Coefficient Variation 13.8 % (11.7-14.2); RDW Standard Deviation 41.1 fL (35.1-46.3); Red Blood Cell Count 4.91 M/mm3 (4.30-5.90); White Blood Cell Count 18.15 K/mm3 (4.00-11.30)
[2024-08-15 18:23] LABS: CORONAVIRUS COVID-19 AG Negative (NEGATIVE); INFLUENZA A AG Negative (NEGATIVE); INFLUENZA B AG Negative (NEGATIVE)
[2024-08-15] MEDS ORDERED: CefTRIAXone Sodium 2,000 MG in NS 100 ML IV ONE (19:00)
[2024-08-15] MEDS ORDERED: NS 1,000 ML IV SCH (19:00)
[2024-08-15] MEDS ORDERED: Azithromycin 500 MG in NS 250 ML IV ONE (19:00)
[2024-08-15 19:18] LABS: Albumin, Blood 2.8 g/dL (3.4-5.0); Albumin/Globulin Ratio 0.5 (0.8-1.8); Bilirubin, Total 1.1 mg/dL (0.1-1.0); Bun/Creatinine Ratio 17.8 (12.0-20.0); Calcium, Blood 8.7 mg/dL (8.5-10.1); Creatinine, Blood 0.73 mg/dL (0.60-1.20); Globulin, Blood 5.2 g/dL (2.2-4.0); Potassium, Blood 3.5 mmol/L (3.5-5.5)
[2024-08-15] MEDS ORDERED: Ipratropium/Albuterol SulF 2.5-0.5MG/3 ML Amp INH SCH (20:10)
[2024-08-15] MEDS ORDERED: Albuterol 2.5 MG/3 ML VIAL INH PRN (20:10)
[2024-08-15] MEDS ORDERED: Ketorolac Tromethamine 15mg Vial IV PRN (20:25)
[2024-08-15] MEDS ORDERED: Vancomycin HCL 2,000 MG in NS 500 ML IV ONE (20:25)
[2024-08-15] MEDS ORDERED: Lactated Ringer's 1,000 ML IV SCH (20:35)
[2024-08-15] MEDS ORDERED: Ondansetron HCl 2 MG / ML 2ML Vial IV PRN (20:35)
[2024-08-15] MEDS ORDERED: Lactobacil 2-S.Thermo-Bifido 1 1 Cap PO SCH (21:00)
[2024-08-15] MEDS ORDERED: Acetaminophen 500 MG Tab PO ONE (21:00)
[2024-08-15 21:30] LABS: U Amphetamine Screen DETECTED; U Barbituate Screen Not Detected; U Benzodiazapine Screen Not Detected; U Buprenorphine Screen Not Detected; U Cannabinoids Screen Not Detected; U Cocaine Screen Not Detected; U Methadone Screen Not Detected; U Methamphetamine Screen DETECTED; U Opiates Screen Not Detected; U Oxycodone Screen Not Detected; U Phencyclidine Screen Not Detected
[2024-08-15 22:07] VITALS: BP 115/77
[2024-08-15] MEDS ORDERED: NS 250 ML IV PRN (22:10)
[2024-08-16] MEDS ORDERED: MethylPREDNISolone Sod Succ 125 MG Vial IV SCH
[2024-08-16 04:49] VITALS: BP 122/77
--- NOTE | 2024-08-16 05:27 | NUR ---
SHIFT SUMMARY PATIENT IS ALERT AND ORIENTED X3-4. PATIENT HAS HAD NO ACUTE EVENTS THIS SHIFT. VITAL SIGNS REVIEWED. PATIENT HAS BEEN ADMITTED THIS SHIFT FOR BILATERAL PNUMONIA. PATIENT HAS HAD ABX AND CONTINOUS FLUIDS INFUSING ORDERED. PATIENT HAS BEEN SLEEPING SINCE ADMIT. PATIENT HAS HAD NO COMPLAINTS OF PAIN, NAUSEA, SOB OR VOMITTING THIS SHIFT. BED IN LOCKED AND LOWEST POSITION.
[2024-08-16 05:29] LABS: BASOPHILS ABSOLUTE AUTO 0.02 K/mm3 (0.00-0.23); BASOPHILS PERCENT AUTO 0 % (0-2); EOSINOPHILS PERCENT AUTO 0 % (0-6); Hematocrit 38.7 % (37.0-53.0); Hemoglobin 12.5 g/dL (13.5-17.5); IMMATURE GRAN ABSOLUTE AUTO 0.07 K/mm3 (0.00-0.10); IMMATURE GRAN PERCENT AUTO 1 % (0-1); LYMPHOCYTES ABSOLUTE AUTO 0.95 K/mm3 (0.84-5.20); LYMPHOCYTES PERCENT AUTO 7 % (21-46); MONOCYTES ABSOLUTE AUTO 0.39 K/mm3 (0.16-1.47); MONOCYTES PERCENT AUTO 3 % (4-13); Mean Corpuscular HGB 27.1 pg (26.0-34.0); Mean Corpuscular HGB Conc 32.3 g/dL (31.5-36.5); Mean Corpuscular Volume 84 fL (80-100); NEUTROPHILS ABSOLUTE AUTO 12.39 K/mm3 (1.96-9.15); NEUTROPHILS PERCENT AUTO 90 % (41-73); Platelet Count 296 K/mm3 (150-400); Red Blood Cell Count 4.62 M/mm3 (4.30-5.90); White Blood Cell Count 13.82 K/mm3 (4.00-11.30)
[2024-08-16 05:56] LABS: Albumin, Blood 2.4 g/dL (3.4-5.0); Albumin/Globulin Ratio 0.5 (0.8-1.8); Bilirubin, Total 0.4 mg/dL (0.1-1.0); Bun/Creatinine Ratio 27.9 (12.0-20.0); Calcium, Blood 8.5 mg/dL (8.5-10.1); Creatinine, Blood 0.54 mg/dL (0.60-1.20); Globulin, Blood 4.7 g/dL (2.2-4.0); Magnesium, Blood 2.2 mg/dL (1.6-2.4); Potassium, Blood 3.7 mmol/L (3.5-5.5); Total Protein, Blood 7.1 g/dL (6.4-8.2)
[2024-08-16] MEDS ORDERED: Vancomycin HCL 1,250 MG in NS 250 ML IV SCH (06:00)
[2024-08-16 07:35] VITALS: BP 136/92
[2024-08-16] MEDS ORDERED: Mometasone/Formoterol MDI 200/5 mcg 13 GM INH SCH (07:40)
[2024-08-16] MEDS ORDERED: Enoxaparin 40 MG/0.4 ML SYR SC SCH (09:00)
[2024-08-16 11:05] VITALS: BP 142/96
[2024-08-16 15:30] VITALS: BP 142/86
--- NOTE | 2024-08-16 17:08 | NUR ---
SHIFT SUMMARY PT IS A/OX4, SBA TO BATHROOM AND USING URINAL INDEPENDENTLY AT BEDSIDE. PT SLEEPING FOR MUCH OF THIS SHIFT. PT PLACED ON 3.5L NC THIS MORNING. USING CONT PULSE OX, SATS DROPPING THE THE HIGH 70'S TO LOW 80'S WHILE ASLEEP ON RA. CURRENTLY THE PT IS ON 2L NC, SATS >92%. CONTINUING IV ANTIBIOTICS. LR RUNNING @ 100 ML/HR.
[2024-08-16 20:44] VITALS: BP 128/93
[2024-08-16] MEDS ORDERED: Azithromycin 500 MG in NS 250 ML IV SCH (21:00)
[2024-08-16] MEDS ORDERED: Montelukast Sodium 10 MG Tab PO SCH (21:00)
[2024-08-16] MEDS ORDERED: CefTRIAXone Sodium 1,000 MG in NS 100 ML IV SCH (21:00)
[2024-08-16] MEDS ORDERED: Gabapentin 100 MG Cap PO SCH (21:00)
[2024-08-16 21:33] LABS: Vancomycin, Trough 12.9 ug/mL (5.0-10.0)
[2024-08-16] MEDS ORDERED: Vancomycin HCL 1,500 MG in NS 250 ML IV SCH (22:00)
[2024-08-17 00:51] VITALS: BP 109/65
[2024-08-17 04:08] VITALS: BP 123/68
--- NOTE | 2024-08-17 04:43 | NUR ---
SHIFT SUMMARY PATIENT IS ALERT AND ORIENTED. PATIENT HAS HAD NO ACUTE EVENTS THIS SHIFT. PATIENT IS A SBA TO THE BATHROOM AND USES URINAL IND. PATIENT IS ON 2L SATTING ABOVE 92 PERCENT. IV ABX INFUSED ORDERED. LR INFUSING AT 100/HR. PATIENT HAS NO COMPLAINTS OF SOB, NAUSEA, VOMITTING OR PAIN THIS SHIFT. VITAL SIGNS REVIEWED. BED IN LOCKED AND LOWEST POSITION.
[2024-08-17 05:06] LABS: Hematocrit 37.6 % (37.0-53.0); Hemoglobin 12.2 g/dL (13.5-17.5); Mean Corpuscular HGB 27.2 pg (26.0-34.0); Mean Corpuscular HGB Conc 32.4 g/dL (31.5-36.5); Mean Corpuscular Volume 84 fL (80-100); Mean Platelet Volume 8.9 fL (9.1-12.4); Platelet Count 338 K/mm3 (150-400); RDW Standard Deviation 42.6 fL (35.1-46.3); Red Blood Cell Count 4.49 M/mm3 (4.30-5.90); White Blood Cell Count 14.29 K/mm3 (4.00-11.30)
[2024-08-17 05:35] LABS: Bun/Creatinine Ratio 29.2 (12.0-20.0); Calcium, Blood 8.8 mg/dL (8.5-10.1); Creatinine, Blood 0.55 mg/dL (0.60-1.20); Magnesium, Blood 2.1 mg/dL (1.6-2.4); Potassium, Blood 3.8 mmol/L (3.5-5.5)
[2024-08-17 07:25] VITALS: BP 153/98
[2024-08-17] MEDS ORDERED: FLUoxetine HCL 20 MG CAP PO SCH (09:00)
[2024-08-17 15:29] VITALS: BP 129/70
--- NOTE | 2024-08-17 18:03 | NUR ---
POSSIBLE HOME TOMORROW, CHEST CT TODAY, EASILY SOB WITH DYSPNEA, FRIENDS VISITED TODAY, CALL LIGHT WITH IN REACH, WILL RLEAY TO PM RN
[2024-08-17 19:34] VITALS: BP 142/88
[2024-08-17] MEDS ORDERED: CefTRIAXone 1000 MG Vial ONE (20:40)
[2024-08-17 22:21] LABS: Vancomycin, Trough 23.5 ug/mL (5.0-10.0)
[2024-08-18 00:22] VITALS: BP 149/84
[2024-08-18 04:41] VITALS: BP 146/92
[2024-08-18] MEDS ORDERED: Vancomycin HCL 1,500 MG in NS 250 ML IV SCH (05:00)
[2024-08-18 05:54] LABS: Hematocrit 39.5 % (37.0-53.0); Hemoglobin 12.3 g/dL (13.5-17.5)
[2024-08-18 06:22] LABS: Magnesium, Blood 2.3 mg/dL (1.6-2.4)
[2024-08-18 06:24] LABS: Bun/Creatinine Ratio 38.4 (12.0-20.0); Calcium, Blood 8.8 mg/dL (8.5-10.1); Creatinine, Blood 0.63 mg/dL (0.60-1.20); Potassium, Blood 3.9 mmol/L (3.5-5.5)
--- NOTE | 2024-08-18 06:55 | NUR ---
SHIFT SUMMARY PT HAS BEEN PLEASANT AND COOPERATIVE. HE HAD TWO VISITORS AT BEGINNING OF SHIFT WHO BROUGHT HIM DINNER. PT IS DIFFICULT TO WAKE. DURING SHIFT, PT DESATTED TO 70%. PT WOKE UP AND O2 WAS APPLIED VIA NC. PT SAT BACK UP TO 97%. PT O2 AT 2L. PT SLEEPING WELL. CALL LIGHT IN REACH. [facility]. 2200 DOSE HELD BY PHARMACY. WILL PASS ON TO DAY SHIFT.
[2024-08-18 07:27] VITALS: BP 148/95
[2024-08-18] MEDS ORDERED: DELTASONE20 MG (11:43)
[2024-08-18] MEDS ORDERED: LEVO750 PO (11:43)
[2024-08-18 11:52] VITALS: BP 134/83
--- NOTE | 2024-08-18 12:18 | NUR ---
DISCHARGE NOTE: PATIENT GOT HIMSELF DRESSED AND [employer] REGISTERED NURSE HELPED GATHER BELONGINGS, REMOVED IVS, PULSE OX, AND TELE. PATIENT UPSET ABOUT HIS HOME O2 EVALUATION HE HAD YESTERDAY AND STATED "SHE DIDN'T WALK ME!" THIS RN TOOK PATIENT ON A WALK WITH A PULSE OX ON HIS FINGER, PATIENT WALKED DOWN THE PINTO AND BACK AND MAINTAINED AN OXYGEN SATURATION ABOVE 88% ON ROOMAIR. WENT OVER DISCHARGE WITH PATIENT, PATIENT WHEELED DOWN BY [employer] REGISTERED NURSE, NO SIGNS OR SYMPTOMS OF DISTRESS WITH DISCHARGE.
== END 2024-08-18 12:16 | disposition home or self-care (01) | DRG 871 ==
LOC: ER 17:17 → MEDS 20:30
PROVIDERS: Hospitalist; Nurse Practitioner Acute Care; Student in an Organized Health Care Education/Training Program; ADMIT Internal Medicine
DX: A41.9 Sepsis, unspecified organism (principal); J18.9 Pneumonia, unspecified organism; J44.0 Chronic obstructive pulmonary disease with (acute) lower respiratory infection; J44.1 Chronic obstructive pulmonary disease with (acute) exacerbation; E87.1 Hypo-osmolality and hyponatremia; G89.29 Other chronic pain; G40.909 Epilepsy, unspecified, not intractable, without status epilepticus; F15.90 Other stimulant use, unspecified, uncomplicated; F32.A Depression, unspecified; Z79.51 Long term (current) use of inhaled steroids; Z79.899 Other long term (current) drug therapy; Z79.52 Long term (current) use of systemic steroids; Z79.2 Long term (current) use of antibiotics; Z89.022 Acquired absence of left finger(s); Z98.890 Other specified postprocedural states; Z87.891 Personal history of nicotine dependence; Z86.14 Personal history of Methicillin resistant Staphylococcus aureus infection; Z99.81 Dependence on supplemental oxygen
CPT/HCPCS: 36415; 71046; 71250; 80048; 80053; 80202; 82803; 83605; 83735; 84145; 84484; 85014; 85018; 85025; 85027; 87428-QW; 87449; 93005; 93010; 94640; 94664; 94761; 94762; 96365; 96375; 97162; 97165; 97530; 97535; 99285-25; A9270; J0456; J0696; J1650; J2919; J3370; J7030; J7040; J7050; J7120